=== PATIENT | female | born 1970 | race Caucasian/White ===

== ENCOUNTER 2017-02-03 16:24 | Emergency (ER) | payer OTHER ==
[~2017-02-03] VITALS: Ht 157.5 cm; Wt 85.9 kg
[2017-02-03 16:29] VITALS: Ht 157.5 cm; Wt 85.9 kg
[2017-02-03] MEDS ORDERED: CLOT30CR24 TOP (17:55)
[2017-02-03] MEDS ORDERED: TRIA15CR55 TOP (17:55)
--- NOTE | 2017-02-03 18:00 | ERD ---
ER Documentation Chief Complaint Chief Complaint Complains of a rash to the neck HPI This is a 47-year-old Bel[place]ian-speaking female. No significant past medical history who presents to the emergency room with a rash. The patient describes approximately 24 hours of a rash to the lung the left anterior neck, skin underneath the straps of her bra and underneath the wires of her bra. She states that it is red and pruritic. It is slightly irritated and dry. She denies any fevers or chills or spreading redness. ROS All systems reviewed and are negative except as per history of present illness. Medications Home Meds Active Scripts Clotrimazole* (Clotrimazole* AF) 1% - 30 Gm Cream.gm., 1 APPLIC TOP BID for 7 Days, TUB Prov:BRAD FREEMAN MD 02/03/17 Triamcinolone Acetonide (Triamcinolone Acetonide) 0.1% - 15 Gm Cream.gm., 1 APPLIC TOP BID for 7 Days, #1 TUB Prov:BRAD FREEMAN MD 02/03/17 PMhx/Soc Medical and Surgical Hx: pt denies Medical Hx, pt denies Surgical Hx Hx Alcohol Use: No Hx Substance Use: No Hx Tobacco Use: No FmHx Family History: No diabetes Physical Exam Vitals Vital Signs Date Time Temp Pulse Resp B/P Pulse Ox O2 Delivery O2 Flow Rate FiO2 02/03/17 16:29 98.5 74 20 133/74 95 Physical Exam General: Well developed, well nourished, no acute distress Head: Normocephalic, atraumatic. Eyes: EOM intact ENT: Moist mucous membranes Neck: Full ROM Respiratory: No respiratory distress Cardiovascular: Good capillary refill Abdominal: Nondistended : Deferred MSK: No edema, no unilateral swelling, 5/5 strength Neurologic: Alert and oriented, moving all extremities, normal speech, steady gait Skin: The patient has a dry, red, plaque-like rash along the left anterior neck , underneath the bra straps of the bilateral shoulders and underneath the wires of her bra. Clear margins, no satellite lesions, no warmth or tenderness. Psych: Normal mood Procedures/MDM The patient's clinical exam seems most consistent with contact dermatitis or eczema. The patient's rash is dry and appears to be related to contact her clothing. Could consider possible fungal infection. The patient has recent negative diabetes testing. No indication for further workup here in the emergency room. I believe topical steroids will be a first line for this process. Outpatient follow-up with pitting machine operator would be reasonable. I explained to the patient that if she continues to have symptoms trial of clotrimazole might be reasonable. A ramp supervisor was used. The patient verbalized understanding. No evidence of cellulitis or systemic illness. Departure Diagnosis: Primary Impression: Contact dermatitis Contact dermatitis type: irritant Contact dermatitis trigger: other trigger Qualified Code: L24.89 - Irritant contact dermatitis due to other agents Condition: Stable Patient Instructions: Contact Dermatitis Referrals: [facility] Usted se bro hecho un examen mdico de control que le indica que no est en ghislaine condicin que requiera tratamiento urgente en el Departamento de Emergencia. Un estudio ms profundo y el tratamiento de patino condicin pueden esperar sin ningn riesgo hasta que usted sea atendida/o en el consultorio de patino mdico o ghislaine cl ainsley. Es responsabilidad suya arreglar ghislaine layton para el seguimiento del gayathri. MANEJO DE CONDICIONES NO URGENTES EN EL FUTURO 1) Si usted tiene un mdico de atencin primaria: Usted debera llamar a patino mdico de atencin primaria antes de venir al departamento de emergencia. Despus de las horas de consultorio, patino doctor o patino asociado/a est disponible por telfono. El mdico o enfermero de ana en el servicio telefnico puede asesorarle por john medio para atender el problema, o gayathri contrario se puede programar ghislaine layton. 2) Si usted no tiene un mdico de atencin primaria: Llame al mdico o clnica de referencia que aparece abajo jessie las horas de consultorio para hacer ghislaine layton para que le vean. CLINICAS: [facility] [phone] [facility] [phone] [address] [facility] [phone] [place] [id number] [phone] [facility] [phone] [facility] [phone] [facility] () Usted se bro hecho un examen mdico de control que le indica que no est en ghislaine condicin que requiera tratamiento urgente en el Departamento de Emergencia. Un estudio ms profundo y el tratamiento de patino condicin pueden esperar sin ningn riesgo hasta que usted sea atendida/o en el consultorio de patino mdico o ghislaine cl ainsley. Es responsabilidad suya arreglar ghislaine layton para el seguimiento del gayathri. MANEJO DE CONDICIONES NO URGENTES EN EL FUTURO 1) Si usted tiene un mdico de atencin primaria: Usted debera llamar a patino mdico de atencin primaria antes de venir al departamento de emergencia. Despus de las horas de consultorio, patino doctor o patino asociado/a est disponible por telfono. El mdico o enfermero de ana en el servicio telefnico puede asesorarle por john medio para atender el problema, o gayathri contrario se puede programar ghislaine layton. 2) Si usted no tiene un mdico de atencin primaria: Llame al mdico o condado institucions de referencia que aparece abajo jessie las horas de consultorio para hacer ghislaine layton para que le vean. SI USTED NO PUEDE PAGAR PARA VESTA UN MEDICO puede ir a: [facility] [id number] [place] [address] [facility] [address] [place] [address] [facility] [address] [place] [address] [facility] [address] [place] [address] Additional Instructions: If the topical steroids do not work then try topical antifungal medication. Follow up with a pitting machine operator as needed. Return for worsening symptoms. Clotrimazole would be the first line for antifungal medication if you need to use. Llame al doctor nombrado ross (Referral Sources) MAANA y bry ghislaine LAYTON PARA DENTRO DE GHISLAINE SEMANA. Dgale a la secretaria que nosotros le instruimos hacer esta layton.Avise o llame si patino condicin se empeora antes de la layton. BRAD FREEMAN MD Feb 03, 2017 18:00
== END 2017-02-03 18:19 | disposition home or self-care (01) ==
LOC: FTE 16:24
DX: L24.89 Irritant contact dermatitis due to other agents (principal)
CPT/HCPCS: 99283